=== PATIENT | female | born 1965 | race Two or more races ===

== ENCOUNTER 2019-07-12 13:18 | Emergency (ER) | payer OTHER ==
[~2019-07-12] VITALS: Ht 144.8 cm; Wt 58.1 kg
[2019-07-12 13:35] VITALS: BP 116/78
[2019-07-12] MEDS ORDERED: ORPHENADRINE CITRATE 60 MG/2 ML VIAL. IM STA (15:01)
[2019-07-12] MEDS ORDERED: KETOROLAC TROMETHAMINE 10 MG TABLET PO STA (15:01)
--- NOTE | 2019-07-12 15:15 | PHYS DOC ---
Past Medical History Past Medical History: No Pertinent History Past Surgical History: Other Additional Past Surgical Histo: RIGHT SHOULDER Alcohol Use: None Drug Use: None Adult General Chief Complaint Chief Complaint: MECHANICAL FALL HPI HPI Patient is a 53 year old female who presents with a fall. The patient states that she fell on ice going to work early this morning. She's been having severe back pain since that time. She rates her pain as 10 out of 10 in severity and sharp. Patient states it is hard for her to sit down. The patient states the location of the pain is in the lower part of her back. Denies any other complaints. Complete ROS were reviewed and found to be within normal limits, except as documented in the HPI Review of Systems Review of Systems Current Medications Current Medications Current Medications Medications (Trade) Dose Ordered Sig/Yordan Start Time Stop Time Status Last Admin Dose Admin Ketorolac Tromethamine (Toradol) 10 mg 1X STAT 07/12/19 15:01 07/12/19 15:04 DC 07/12/19 15:23 10 MG Orphenadrine Citrate (Norflex) 60 mg 1X STAT 07/12/19 15:01 07/12/19 15:04 DC 07/12/19 15:23 60 MG Allergies Allergies Allergies Coded Allergies Type Severity Reaction Last Updated Verified Sulfa (Sulfonamide Antibiotics) Allergy Intermediate 07/12/19 Yes Physical Exam Physical Exam Constitutional: Well developed, well nourished, no acute distress, non-toxic appearance. [] HENT: Normocephalic, atraumatic, bilateral external ears normal, oropharynx moist, no oral exudates, nose normal. [] Eyes: PERRLA, EOMI, conjunctiva normal, no discharge. [] Neck: Normal range of motion, no tenderness, supple, no stridor. [] Cardiovascular:Heart rate regular rhythm, no murmur [] Lungs & Thorax: Bilateral breath sounds clear to auscultation [] Skin: Warm, dry, no erythema, no rash. [] Back: Thoracic and Lumbar tenderness with no step offs. Extremities: No tenderness, no cyanosis, no clubbing, ROM intact, no edema. [] Neurologic: Alert and oriented X 3, normal motor function, normal sensory function, no focal deficits noted. [] Psychologic: Affect normal, judgement normal, mood normal. [] Current Patient Data Vital Signs Vital Signs Date Time Temp Pulse Resp B/P (MAP) Pulse Ox O2 Delivery O2 Flow Rate FiO2 07/12/19 13:35 98.0 85 14 116/78 (91) 99 Room Air 98.0 EKG EKG [] Radiology/Procedures Radiology/Procedures [][facility] [address] [place] [address] IMAGING REPORT Signed PATIENT: ALEXX BRYANT ACCOUNT: [id number] : 1965 LOCATION: ER AGE: 53 SEX: F EXAM STATUS: REG ER ORD. PHYSICIAN: RANJIT CARDONA APRN REASON: FELL ON ICE, BACK PAIN PROCEDURE: CT LUMBAR SPINE WO CONTRAST STUDY: 1. CT thoracic spine without contrast 2. CT lumbar spine without contrast INDICATION: Fall. Back pain. COMPARISON: None. TECHNIQUE: Axial CT imaging of the thoracic and lumbar spine performed without contrast. Coronal and sagittal reformats were obtained. One or more of the following individualized dose reduction techniques were utilized for this examination: 1. Automated exposure control 2. Adjustment of the mA and/or kV according to patient size 3. Use of iterative reconstruction technique. FINDINGS: THORACIC SPINE: No suspicious thoracic vertebral body height loss. The posterior elements are intact. No traumatic malalignment across the disc spaces are facet joints. The visualized portions of the ribs are intact. Broad dextroscoliosis centered at T8. Multilevel discogenic arthrosis with scattered levels exhibiting vacuum phenomenon. Multilevel facet degeneration. Scattered small disc bulges. No severe bony encroachment on the central canal. Scattered levels with mostly mild bony neural foraminal encroachment on account of facet degeneration. No soft tissue sequela of trauma identified. LUMBAR SPINE: No acute fracture of the lumbar vertebral bodies. Maintained alignment across the facet joints. What is seen of the sacrum and iliac bones are intact. Acute fractures of the left first, second, third and fourth transverse processes on the left. Mild displacement of the third and fourth fractures. Scattered relatively mild degenerative changes. IMPRESSION: Thoracic spine: 1. No acute fracture seen throughout the thoracic spine. 2. Multifactorial degenerative changes on a background of broad dextroscoliosis centered at T8. Lumbar spine: 1. Acute fractures of the left L1-L4 transverse processes. Mild displacement of the third and fourth transverse process fractures. No additional acute osseous abnormality seen throughout the lumbar spine. Electronically signed by: JANIA ALEXANDER MD (07/12/2019 3:34 PM) [facility] [place] DICTATED and SIGNED BY: JANIA ALEXANDER MD DATE: 07/12/19 1534 Course & Med Decision Making Course & Med Decision Making Pertinent Labs and Imaging studies reviewed. (See chart for details) Will get CT of thoracic and lumbar spine and will give supportive care. IMPRESSION: Thoracic spine: 1. No acute fracture seen throughout the thoracic spine. 2. Multifactorial degenerative changes on a background of broad dextroscoliosis centered at T8. Lumbar spine: 1. Acute fractures of the left L1-L4 transverse processes. Mild displacement of the third and fourth transverse process fractures. No additional acute osseous abnormality seen throughout the lumbar spine. Electronically signed by: JANIA ALEXANDER MD (07/12/2019 3:34 PM) [facility] [id number] Discussed with KANDICE Roach from Dr. Neil's office (Neurosurgery). She stated that fractures are stable and patient is okay to be sent home. Will have f ollowup with Dr. Harman. Art Disclaimer Art Disclaimer This electronic medical record was generated, in whole or in part, using a voice recognition dictation system. Departure Departure Impression: Primary Impression: Lumbar transverse process fracture Disposition: 01 HOME, SELF-CARE Condition: STABLE Referrals: UNKNOWN PCP NAME (PCP) PAMELA HARMAN MD Patient Instructions: Transverse Process Fracture Additional Instructions: Thank you for visiting [facility]. We appreciate you trusting us with your care. If any additional problems come up don't hesitate to return to visit us. Please follow up with your primary care provider so they can plan shaheen tional care if needed and know about the problem that you had. If symptoms worsen come back to the Emergency Department. Any concerning symptoms that start such as chest pain, shortness of air, weakness or numbness on one side of the body, running high fevers or any other concerning symptoms return to the ER. Please fill your medications at any pharmacy and follow the prescription instructions. Scripts Orphenadrine Citrate (ORPHENADRINE CITRATE) 100 Mg Tablet.er 100 MG PO BID PRN for MUSCLE PAIN for 10 Days, #20 TAB.SR Prov: RANJIT CARDONA APRN 07/12/19 Ondansetron (ONDANSETRON ODT) 4 Mg Tab.rapdis 1 TAB PO PRN Q6-8HRS PRN for NAUSEA, #16 TAB Prov: RANJIT CARDONA APRN 07/12/19 Hydrocodone/Apap 5-325 (NORCO 5-325 TABLET) 1 Each Tablet 1 TAB PO PRN Q6HRS PRN for PAIN for 3 Days, #12 TAB 0 Refills Prov: RANJIT CARDONA APRN 07/12/19 Problem Qualifiers Primary Impression: Lumbar transverse process fracture Encounter type: initial encounter Fracture type: closed Qualified Codes: S32.009A - Unspecified fracture of unspecified lumbar vertebra, initial encounter for closed fracture RANJIT CARDONA APRN Jul 12, 2019 15:15
--- NOTE | 2019-07-12 15:37 | RAD ---
STUDY: 1. CT thoracic spine without contrast 2. CT lumbar spine without contrast INDICATION: Fall. Back pain. COMPARISON: None. TECHNIQUE: Axial CT imaging of the thoracic and lumbar spine performed without contrast. Coronal and sagittal reformats were obtained. One or more of the following individualized dose reduction techniques were utilized for this examination: 1. Automated exposure control 2. Adjustment of the mA and/or kV according to patient size 3. Use of iterative reconstruction technique. FINDINGS: THORACIC SPINE: No suspicious thoracic vertebral body height loss. The posterior elements are intact. No traumatic malalignment across the disc spaces are facet joints. The visualized portions of the ribs are intact. Broad dextroscoliosis centered at T8. Multilevel discogenic arthrosis with scattered levels exhibiting vacuum phenomenon. Multilevel facet degeneration. Scattered small disc bulges. No severe bony encroachment on the central canal. Scattered levels with mostly mild bony neural foraminal encroachment on account of facet degeneration. No soft tissue sequela of trauma identified. LUMBAR SPINE: No acute fracture of the lumbar vertebral bodies. Maintained alignment across the facet joints. What is seen of the sacrum and iliac bones are intact. Acute fractures of the left first, second, third and fourth transverse processes on the left. Mild displacement of the third and fourth fractures. Scattered relatively mild degenerative changes. IMPRESSION: Thoracic spine: 1. No acute fracture seen throughout the thoracic spine. 2. Multifactorial degenerative changes on a background of broad dextroscoliosis centered at T8. Lumbar spine: 1. Acute fractures of the left L1-L4 transverse processes. Mild displacement of the third and fourth transverse process fractures. No additional acute osseous abnormality seen throughout the lumbar spine. Electronically signed by: JANIA ALEXANDER MD (07/12/2019 3:34 PM) [place] [id number]
[2019-07-12] MEDS ORDERED: HYDROcodone/APAP 5/325MG 1 TAB TABLET PO STA (16:38)
[2019-07-12] MEDS ORDERED: ONDA4TAB12 PO (16:38)
[2019-07-12] MEDS ORDERED: HYDR-3164 PO (16:38)
[2019-07-12] MEDS ORDERED: ORPH100T PO (16:38)
== END 2019-07-12 16:43 | disposition home or self-care (01) ==
LOC: ER 13:18
DX: S32.009A Unspecified fracture of unspecified lumbar vertebra, initial encounter for closed fracture (principal); M54.6 Pain in thoracic spine; Z88.2 Allergy status to sulfonamides; W00.0XXA Fall on same level due to ice and snow, initial encounter; Y93.89 Activity, other specified; Y92.89 Other specified places as the place of occurrence of the external cause; Y99.8 Other external cause status
CPT/HCPCS: 72128; 72131; 96372; 99284; J2360

== ENCOUNTER 2021-04-10 19:56 | Emergency (ER) | payer OTHER ==
[~2021-04-10] VITALS: Ht 147.3 cm; Wt 64.4 kg
[~2021-04-10 19:56] MED LIST: HYDR-3164 PO; ONDA4TAB12 PO; ORPH100T PO
[2021-04-11] MEDS ORDERED: KETOROLAC 60 MG/2 ML VIAL. IM ONE (02:30)
--- NOTE | 2021-04-11 02:38 | ED.ADGEN ---
Past Medical History Past Medical History: No Pertinent History Past Surgical History: Cholecystectomy, Hysterectomy, Other Additional Past Surgical Histo: RIGHT SHOULDER Smoking Status: Never Smoker Alcohol Use: None Drug Use: None General Adult EDM: Chief Complaint: HEAD INJURY/TRAUMA HPI: HPI: Patient is a 55 year old female coming in after head injury about 8 hours prior to exam. Patient states she was at help someone unload a box of a truck when it struck her in the head and she fell forward onto her hands and lower legs and struck her right forehead on the ground. Her little bit of bleeding from her nares this is stopped and abrasion to her upper lip. Denies any loss of consciousness, nausea or vomiting, states she had some blurred vision for about 45 minutes after the fall. States she has a throbbing headache currently. Denies any history of migraines. Otherwise been well. Denies any use of anticoagulants other than a baby aspirin daily. Review of Systems: Review of Systems: All other systems within normal limits except for as noted in the HPI Current Medications: Current Medications Medications (Trade) Dose Ordered Sig/Yordan Start Time Stop Time Status Last Admin Dose Admin Ketorolac Tromethamine (Toradol Im) 60 mg 1X ONCE 04/11/21 02:30 04/11/21 02:31 DC 04/11/21 02:47 60 MG Allergies: Allergies: Allergies Coded Allergies Type Severity Reaction Last Updated Verified Sulfa (Sulfonamide Antibiotics) Allergy Intermediate 07/12/19 Yes Physical Exam: PE: Constitutional: Well developed, well nourished, no acute distress, non-toxic appearance. [] HENT: Normocephalic, atraumatic, bilateral external ears normal, nose normal. [] Eyes: PERRLA, conjunctiva normal, no discharge. [] Neck: No rigidity, supple, no stridor. [] Cardiovascular: Regular rate and rhythm, brisk cap refill [] Lungs & Thorax: Non labored symmetric respirations, no tachypnea or respiratory distress [] Abdomen: Soft, nondistended. Skin: Warm, dry, no erythema, no rash. Abrasion above right upper lip, right forehead. Small abrasions to bilateral shins [] Back: Unremarkable Extremities: No deformities, range of motion grossly intact, no lower extremity edema [] Neurologic: Alert and oriented X 3, no focal deficits noted. [] Psychologic: Affect normal, judgement normal, mood normal. [] Current Patient Data: Vital Signs: Vital Signs Date Time Temp Pulse Resp B/P (MAP) Pulse Ox O2 Delivery O2 Flow Rate FiO2 04/11/21 03:30 89 18 120/56 (77) 96 04/11/21 02:17 Room Air 04/10/21 20:24 98.2 98.2 EKG: EKG: [] Heart Score: C/O Chest Pain: No Risk Factors: Risk Factors: DM, Current or recent (<one month) smoker, HTN, HLP, family history of CAD, obesity. Risk Scores: Score 0 - 3: 2.5% MACE over next 6 weeks - Discharge Home Score 4 - 6: 20.3% MACE over next 6 weeks - Admit for Clinical Observation Score 7 - 10: 72.7% MACE over next 6 weeks - Early Invasive Strategies Radiology/Procedures: Radiology/Procedures: [facility] [address] [place] [address] IMAGING REPORT Signed PATIENT: ALEXX BRYANT ACCOUNT: [id number] : 1965 LOCATION: ER AGE: 55 SEX: F EXAM STATUS: REG ER ORD. PHYSICIAN: ANGEL ZAMORA MD REASON: blunt trauma PROCEDURE: CT HEAD WO CONTRAST CT HEAD/BRAIN WO History: Reason: blunt trauma / Spl. Instructions: / History: . Pain Comparison: None. Technique: Noncontrast CT imaging was performed of the head. Exposure: One or more of the following individualized dose reduction techniques were utilized for this examination: 1. Automated exposure control 2. Adjustment of the mA and/or kV according to patient size 3. Use of iterative reconstruction technique. Findings: No intracranial hemorrhage. No mass effect. No hydrocephalus. Extra-axial spaces are unremarkable. Imaged orbits are unremarkable. Imaged paranasal sinuses and mastoid air cells are clear. No acute calvarial fracture. Impression: 1. No acute intracranial abnormality. Electronically signed by: Tree Marin DO (04/11/2021 3:12 AM) [facility] DICTATED and SIGNED BY: TREE MARIN DO DATE: 04/11/21 [id number] [] Course & Med Decision Making: Course & Med Decision Making Pertinent Labs and Imaging studies reviewed. (See chart for details) Discussed risk benefits of imaging. Patient states that she would feel comf ortable having imaging done. Tetanus is up-to-date [] Dragon Disclaimer: Dragon Disclaimer: This electronic medical record was generated, in whole or in part, using a voice recognition dictation system. Departure Departure Impression: Primary Impression: Closed head injury without loss of consciousness Additional Impression: Mild concussion Disposition: 01 HOME / SELF CARE / HOMELESS Condition: STABLE Referrals: CHERYL LÓPEZ (PCP) Patient Instructions: Head Injury, Adult Problem Qualifiers ANGEL ZAMORA MD Apr 11, 2021 02:38
--- NOTE | 2021-04-11 03:14 | RAD ---
CT HEAD/BRAIN WO History: Reason: blunt trauma / Spl. Instructions: / History: . Pain Comparison: None. Technique: Noncontrast CT imaging was performed of the head. Exposure: One or more of the following individualized dose reduction techniques were utilized for thi s examination: 1. Automated exposure control 2. Adjustment of the mA and/or kV according to patient size 3. Use of iterative reconstruction technique. Findings: No intracranial hemorrhage. No mass effect. No hydrocephalus. Extra-axial spaces are unremarkable. Imaged orbits are unremarkable. Imaged paranasal sinuses and mastoid air cells are clear. No acute ca lvarial fracture. Impression: 1. No acute intracranial abnormality. Electronically signed by: Tree Marin DO (04/11/2021 3:12 AM) [facility]
[2021-04-11 03:30] VITALS: BP 120/56
== END 2021-04-11 04:29 | disposition home or self-care (01) ==
LOC: ER 19:56
DX: S06.0X0A Concussion without loss of consciousness, initial encounter (principal); S00.511A Abrasion of lip, initial encounter; S80.812A Abrasion, left lower leg, initial encounter; S80.811A Abrasion, right lower leg, initial encounter; Z88.2 Allergy status to sulfonamides; W20.8XXA Other cause of strike by thrown, projected or falling object, initial encounter; Y93.89 Activity, other specified; Y92.89 Other specified places as the place of occurrence of the external cause; Y99.8 Other external cause status
CPT/HCPCS: 70450; 96372; 99284; J1885